=== PATIENT | female | born 1990 | race Caucasian/White ===

== ENCOUNTER 2016-08-12 06:35 | Emergency (ER) | payer BC, OTHER ==
[~2016-08-12] VITALS: Ht 170.2 cm; Wt 76.7 kg
[~2016-08-12 06:35] MED LIST: HYDR-3138 PO; [UNRECOGNIZED DRUG - OTHER] PO
[2016-08-12 06:38] VITALS: BP 123/76
[2016-08-12] MEDS ORDERED: METHOCARBAMOL 750 MG TABLET ONE (07:20)
[2016-08-12] MEDS ORDERED: KETOROLAC 30 MG/1 ML ONE (07:20)
[2016-08-12] MEDS ORDERED: KETOROLAC 30 MG/1 ML IM ONE (07:30)
[2016-08-12] MEDS ORDERED: METHOCARBAMOL 750 MG TABLET PO ONE (07:30)
== END 2016-08-12 09:04 | disposition home or self-care (01) ==
LOC: ED 08:59
DX: S29.019A Strain of muscle and tendon of unspecified wall of thorax, initial encounter (principal); F17.200 Nicotine dependence, unspecified, uncomplicated; S16.1XXA Strain of muscle, fascia and tendon at neck level, initial encounter; V49.9XXA Car occupant (driver) (passenger) injured in unspecified traffic accident, initial encounter; Y93.89 Activity, other specified; Y99.8 Other external cause status; Y92.488 Other paved roadways as the place of occurrence of the external cause
CPT/HCPCS: 72020; 72050; 72072; 96372; 99284; J1885

== ENCOUNTER 2018-08-31 12:14 | Emergency (ER) | payer OTHER ==
[~2018-08-31] VITALS: Ht 170.2 cm; Wt 74.0 kg
[~2018-08-31 12:14] MED LIST changes: -HYDR-3138 PO; +HYDR-3237 PO
[2018-08-31 12:31] VITALS: BP 120/79
[2018-08-31 13:36] LABS: BASOPHILS # (AUTO) 0.02 x10^3/uL (0-0.1); BASOPHILS % (AUTO) 0 % (0-1); EOSINOPHILS # (AUTO) 0.14 x10^3/uL (0-0.4); EOSINOPHILS % (AUTO) 2 % (1-7); LYMPHOCYTES % (AUTO) 25 % (22-44); MD NO; MEAN CORPUSCULAR HEMOGLOBIN 29.5 pg (27.0-34.8); MEAN CORPUSCULAR HGB CONC 32.9 g/dL (32.4-35.8); MEAN CORPUSCULAR VOLUME 89.6 fL (80-100); MEAN PLATELET VOLUME 8.6 fL (7.4-10.4); MONOCYTES # (AUTO) 0.61 x10^3/uL (0.2-0.8); MONOCYTES % (AUTO) 7 % (2-9); NEUTROPHILS # (AUTO) 5.69 x10^3/uL (1.8-6.8); NEUTROPHILS % (AUTO) 66 % (42-75); PLATELET COUNT 223 x10^3/uL (130-400); RED BLOOD COUNT 4.94 x10^6/uL (3.82-5.3); RED CELL DISTRIBUTION WIDTH 13.2 % (9.6-15.2)
--- NOTE | 2018-08-31 13:36 | NUR ---
PATIENT TO US
[2018-08-31 13:45] LABS: ALBUMIN 4.5 g/dL (3.4-5.0); ANION GAP 7 mmol/L (5-15); CALCIUM 9.3 mg/dL (8.5-10.1); CHLORIDE 108 mmol/L (98-107)
--- NOTE | 2018-08-31 14:27 | NUR ---
PATIENT GIVEN MISCARRIAGE PACKET AND RECIEVED CONSENT FOR THE L&D TEAM TO CALL THE PATIENT FOR FOLLOW UP. MEDICAL FOLLOW UP ALSO DISCUSSED WITH PATIENT
== END 2018-08-31 14:35 | disposition home or self-care (01) ==
LOC: ED 14:34
DX: O20.0 Threatened abortion (principal); O99.331 Smoking (tobacco) complicating pregnancy, first trimester; Z3A.01 Less than 8 weeks gestation of pregnancy
CPT/HCPCS: 36415; 76801; 80048; 82040; 84702; 85025; 86901; 99284

== ENCOUNTER 2019-02-12 00:44 | Emergency (ER) | payer OTHER ==
[~2019-02-12] VITALS: Ht 170.2 cm; Wt 76.2 kg
[2019-02-12] MEDS ORDERED: SODIUM CHLORIDE 0.9% 1,000ML IVBOLUS ONE (01:00)
[2019-02-12] MEDS ORDERED: ONDANSETRON 2MG/ML, 2ML IVPush ONE (01:00)
[2019-02-12] MEDS ORDERED: SODIUM CHLORIDE FLUSH 10ML SYR IVF ONE (01:00)
[2019-02-12] MEDS ORDERED: ONDANSETRON 2MG/ML, 2ML ONE (01:05)
[2019-02-12 01:11] LABS: BASOPHILS # (AUTO) 0.03 x10^3/uL (0-0.1); BASOPHILS % (AUTO) 0 % (0-1); EOSINOPHILS # (AUTO) 0.17 x10^3/uL (0-0.4); EOSINOPHILS % (AUTO) 1 % (1-7); LYMPHOCYTES # (AUTO) 2.05 x10^3/uL (1-3.4); LYMPHOCYTES % (AUTO) 18 % (22-44); MD NO; MEAN CORPUSCULAR HEMOGLOBIN 30.2 pg (27.0-34.8); MEAN CORPUSCULAR HGB CONC 33.3 g/dL (32.4-35.8); MEAN CORPUSCULAR VOLUME 90.5 fL (80-100); MEAN PLATELET VOLUME 8.8 fL (7.4-10.4); MONOCYTES # (AUTO) 0.75 x10^3/uL (0.2-0.8); MONOCYTES % (AUTO) 6 % (2-9); NEUTROPHILS # (AUTO) 8.66 x10^3/uL (1.8-6.8); NEUTROPHILS % (AUTO) 74 % (42-75); PLATELET COUNT 243 x10^3/uL (130-400); RED BLOOD COUNT 4.78 x10^6/uL (3.82-5.3)
[2019-02-12 01:22] LABS: ALBUMIN 4.1 g/dL (3.4-5.0); ANION GAP 8 mmol/L (5-15); CALCIUM 9.1 mg/dL (8.5-10.1); CHLORIDE 105 mmol/L (98-107)
[2019-02-12] MEDS ORDERED: METO10TA2 PO (01:22)
[2019-02-12] MEDS ORDERED: PREN-3 PO (01:22)
[2019-02-12 01:36] VITALS: BP 101/49
[2019-02-12 01:36] LABS: MICROSCOPIC INDICATED
--- NOTE | 2019-02-12 01:37 | NUR ---
pt resting calmly, iv fluids infusing, monitors in place, call light within reach. pt denies needs at this time
[2019-02-12 01:43] LABS: CULTURE INDICATED? YES
== END 2019-02-12 02:09 | disposition home or self-care (01) ==
LOC: ED 01:25
DX: O21.1 Hyperemesis gravidarum with metabolic disturbance (principal); R10.84 Generalized abdominal pain; Z3A.08 8 weeks gestation of pregnancy
CPT/HCPCS: 36415; 80048; 81001; 82040; 85025; 87086; 96361; 96374; 99283; J2405; J7030

== ENCOUNTER 2019-09-16 09:27 | Inpatient (IN) | payer MEDICAID ==
[~2019-09-16] VITALS: Ht 170.2 cm; Wt 93.2 kg
[~2019-09-16 09:27] MED LIST changes: +METO10TA2 PO; +PREN-3 PO
[2019-09-17 13:25] VITALS: BP 121/70
[2019-09-17] MEDS ORDERED: OXYTOCIN 30U/ 0.9% NaCL 500ML 500 ML IV ONE (14:01)
[2019-09-17] MEDS ORDERED: LACTATED RINGERS 1,000 ML IV SCH ×2 (14:07→21:30)
[2019-09-17] MEDS ORDERED: MISOPROSTOL 25 MCG TABLET ONE ×2 (14:09→17:46)
[2019-09-17] MEDS: MISOPROSTOL 25 MCG TABLET PO PRN ×2 (14:11→17:55)
[2019-09-17] MEDS ORDERED: ONDANSETRON 2MG/ML, 2ML IVPush PRN ×2 (14:30→21:30)
[2019-09-17] MEDS ORDERED: TERBUTALINE 1 MG/ML, 1ML IVPush PRN (14:30)
[2019-09-17] MEDS ORDERED: FENTANYL PF 100 MCG/2ML IV PRN (14:30)
[2019-09-17] MEDS ORDERED: PENICILLIN GK 5,000,000 UNITS in DEXTROSE 5% 100 ML IVPB ONE (14:30)
[2019-09-17] MEDS ORDERED: CALCIUM CARBONATE 500 MG TAB.CHEW PO PRN (14:30)
[2019-09-17] MEDS ORDERED: FENTANYL PF 100 MCG/2ML IVPush PRN (14:30)
[2019-09-17] MEDS ORDERED: TERBUTALINE 1 MG/ML, 1ML SQ PRN (14:30)
[2019-09-17 14:45] LABS: BASOPHILS # (AUTO) 0.02 x10^3/uL (0-0.1); BASOPHILS % (AUTO) 0 % (0-1); EOSINOPHILS # (AUTO) 0.14 x10^3/uL (0-0.4); EOSINOPHILS % (AUTO) 2 % (1-7); LYMPHOCYTES # (AUTO) 1.74 x10^3/uL (1-3.4); LYMPHOCYTES % (AUTO) 22 % (22-44); MD SCAN; MEAN CORPUSCULAR HEMOGLOBIN 29.2 pg (27.0-34.8); MEAN CORPUSCULAR HGB CONC 32.1 g/dL (32.4-35.8); MEAN CORPUSCULAR VOLUME 90.9 fL (80-100); MEAN PLATELET VOLUME 9.9 fL (7.4-10.4); MONOCYTES # (AUTO) 0.67 x10^3/uL (0.2-0.8); MONOCYTES % (AUTO) 8 % (2-9); NEUTROPHILS # (AUTO) 5.34 x10^3/uL (1.8-6.8); NEUTROPHILS % (AUTO) 68 % (42-75); PLATELET COUNT 150 x10^3/uL (130-400); RED BLOOD COUNT 4.22 x10^6/uL (3.82-5.3); RED CELL DISTRIBUTION WIDTH 14.6 % (9.6-15.2)
[2019-09-17] MEDS ORDERED: D5%-LACTATED RINGERS 1,000 ML IV SCH (15:00)
[2019-09-17] MEDS: PENICILLIN GK 2,500,000 UNITS in DEXTROSE 5% 100 ML IVPB SCH ×2 (17:50→22:00)
[2019-09-17] MEDS ORDERED: FENTANYL PF 100 MCG/2ML ONE (19:13)
[2019-09-17] MEDS ORDERED: OXYTOCIN 30U/ 0.9% NaCL 500ML 500 ML ONE (19:33)
[2019-09-17 19:40] VITALS: BP 129/82
[2019-09-17] MEDS ORDERED: FENTANYL/BUPIV./NS/PF 250 ML EPIDCONT ONE (20:50)
[2019-09-17] MEDS ORDERED: BUPIVACAINE 0.25% ONE (20:55)
[2019-09-17] MEDS ORDERED: FENTANYL/BUPIV./NS/PF 250 ML EPIDCONT SCH (21:30)
[2019-09-17] MEDS ORDERED: NALOXONE 0.4 MG/ML, 1ML IVPush PRN (21:30)
[2019-09-17] MEDS ORDERED: LACTATED RINGERS 1,000 ML IVBOLUS PRN (21:30)
[2019-09-17] MEDS ORDERED: EPHEDRINE 50 MG/ML, 1ML IVPush PRN (21:30)
[2019-09-17] MEDS ORDERED: DIPHENHYDRAMINE 50 MG/ML, 1ML IVPush PRN (21:30)
[2019-09-17] MEDS ORDERED: ONDANSETRON 2MG/ML, 2ML ONE (22:40)
[2019-09-18] MEDS: PENICILLIN GK 2,500,000 UNITS in DEXTROSE 5% 100 ML IVPB SCH ×2 (02:27→06:38)
[2019-09-18] MEDS ORDERED: OXYTOCIN 30U/ 0.9% NaCL 500ML 500 ML IV SCH (07:14)
[2019-09-18] MEDS ORDERED: DOCUSATE 100 MG CAPSULE PO PRN (07:30)
[2019-09-18] MEDS ORDERED: SIMETHICONE 80 MG CHEW TAB PO PRN (07:30)
[2019-09-18] MEDS ORDERED: RHOGAM FROM BLOOD BANK 1 NOTE EA IM/IV ONE (07:30)
[2019-09-18] MEDS ORDERED: MISOPROSTOL 200 MCG TABLET PR PRN (07:30)
[2019-09-18] MEDS ORDERED: ONDANSETRON 2MG/ML, 2ML IV PRN (07:30)
[2019-09-18] MEDS ORDERED: OXYcodone/APAP 5/325MG TABLET PO PRN ×2 (07:30)
[2019-09-18] MEDS ORDERED: MAGNESIUM HYDROXIDE 8%, 30ML UDC PO PRN (07:30)
[2019-09-18] MEDS ORDERED: DIPH,PERTUSS(ACELL),TET VAC/PF NC IM-VACC PRN (07:30)
[2019-09-18] MEDS ORDERED: CALCIUM CARBONATE 500 MG TAB.CHEW PO PRN (07:30)
[2019-09-18] MEDS ORDERED: ACETAMINOPHEN 325 MG TABLET PO PRN ×2 (07:30)
[2019-09-18] MEDS ORDERED: NEWBORN KIT ONE (07:38)
[2019-09-18] MEDS ORDERED: OXYTOCIN 30U/ 0.9% NaCL 500ML 500 ML ONE (07:50)
[2019-09-18] MEDS: PRENATAL VIT/IRON/FA 1 EACH TABLET PO SCH (09:00)
[2019-09-18 11:07] VITALS: BP 106/66
[2019-09-18] MEDS: IBUPROFEN 600 MG TABLET PO PRN ×2 (12:30→18:19)
[2019-09-18 14:33] VITALS: BP 105/63
[2019-09-18 19:22] VITALS: BP 99/62
[2019-09-19 00:15] VITALS: BP 106/68
[2019-09-19] MEDS: IBUPROFEN 600 MG TABLET PO PRN ×2 (02:38→11:43)
[2019-09-19 03:22] LABS: BASOPHILS # (AUTO) 0.04 x10^3/uL (0-0.1); BASOPHILS % (AUTO) 0 % (0-1); EOSINOPHILS # (AUTO) 0.21 x10^3/uL (0-0.4); EOSINOPHILS % (AUTO) 2 % (1-7); LYMPHOCYTES # (AUTO) 2.66 x10^3/uL (1-3.4); LYMPHOCYTES % (AUTO) 22 % (22-44); MD NO; MEAN CORPUSCULAR HEMOGLOBIN 29.6 pg (27.0-34.8); MEAN CORPUSCULAR HGB CONC 32.8 g/dL (32.4-35.8); MEAN CORPUSCULAR VOLUME 90.2 fL (80-100); MEAN PLATELET VOLUME 9.8 fL (7.4-10.4); MONOCYTES % (AUTO) 8 % (2-9); NEUTROPHILS # (AUTO) 8.43 x10^3/uL (1.8-6.8); NEUTROPHILS % (AUTO) 68 % (42-75); PLATELET COUNT 154 x10^3/uL (130-400); RED CELL DISTRIBUTION WIDTH 14.8 % (9.6-15.2)
[2019-09-19 03:30] VITALS: BP 119/83
[2019-09-19 07:50] VITALS: BP 125/76
[2019-09-19] MEDS ORDERED: IBUP-1222 PO (09:49)
[2019-09-19] MEDS: PRENATAL VIT/IRON/FA 1 EACH TABLET PO SCH (10:05)
== END 2019-09-19 16:02 | disposition home or self-care (01) | DRG 806 ==
LOC: LDIP 09-17 13:10 → 2NW 09-18 09:28
PROVIDERS: ADMIT Obstetrics & Gynecology; ATTEND Obstetrics & Gynecology
PROC: 10E0XZZ Delivery of Products of Conception, External Approach (ICD-10-PCS; principal; 2019-09-18)
PROC: 10907ZC Drainage of Amniotic Fluid, Therapeutic from Products of Conception, Via Natural or Artificial Opening (ICD-10-PCS; 2019-09-18)
PROC: 10H07YZ Insertion of Other Device into Products of Conception, Via Natural or Artificial Opening (ICD-10-PCS; 2019-09-18)
PROC: 3E0R3BZ Introduction of Anesthetic Agent into Spinal Canal, Percutaneous Approach (ICD-10-PCS; 2019-09-18)
PROC: 00HU33Z Insertion of Infusion Device into Spinal Canal, Percutaneous Approach (ICD-10-PCS; 2019-09-18)
PROC: 3E0P7VZ Introduction of Hormone into Female Reproductive, Via Natural or Artificial Opening (ICD-10-PCS; 2019-09-18)
DX: O99.824 Streptococcus B carrier state complicating childbirth (principal); O98.52 Other viral diseases complicating childbirth; Z37.0 Single live birth; B00.9 Herpesviral infection, unspecified; Z20.828 Contact with and (suspected) exposure to other viral communicable diseases; Z3A.39 39 weeks gestation of pregnancy
CPT/HCPCS: 36415; 85025; 86592; 86850; 86900; 87635; G0378; J2405; J2540; J3010; J2590; J7120

== ENCOUNTER 2020-06-12 09:02 | Outpatient (CLI) | payer OTHER ==
[~2020-06-12 09:02] MED LIST changes: +IBUP-1222 PO
[2020-06-12] MEDS ORDERED: BIRTH CONTROL (09:27)
[2020-06-12 09:53] LABS: BASOPHILS % (AUTO) 1 % (0-1); EOSINOPHILS % (AUTO) 4 % (1-7); LYMPHOCYTES % (AUTO) 41 % (22-44); MEAN CORPUSCULAR HEMOGLOBIN 28.8 pg (27.0-34.8); MEAN CORPUSCULAR HGB CONC 33.9 g/dL (32.4-35.8); MONOCYTES % (AUTO) 8 % (2-9); NEUTROPHILS % (AUTO) 47 % (42-75); PLATELET COUNT 203 x10^3/uL (130-400); RED CELL DISTRIBUTION WIDTH 13.6 % (9.6-15.2)
[2020-06-12 09:58] LABS: MICROSCOPIC AUTO
[2020-06-12 10:04] LABS: ALANINE AMINOTRANSFERASE 16 U/L (12-78); ALBUMIN 4.3 g/dL (3.4-5.0); ANION GAP 3 mmol/L (5-15); CALCIUM 9.1 mg/dL (8.5-10.1); CHLORIDE 111 mmol/L (98-107); CREATININE 0.72 mg/dL (0.55-1.02)
[2020-06-12 10:08] LABS: ALKALINE PHOSPHATASE 70 U/L (45-117); BILIRUBIN,TOTAL 0.4 mg/dL (0.2-1.0); TOTAL PROTEIN 7.6 g/dL (6.4-8.2)
[2020-06-12 10:25] LABS: MD SCAN
== END 2020-06-12 23:59 | disposition home or self-care (01) ==
LOC: STAR 09:02
PROVIDERS: ATTEND Obstetrics & Gynecology
DX: Z01.812 Encounter for preprocedural laboratory examination (principal); Z20.822 Contact with and (suspected) exposure to COVID-19
CPT/HCPCS: 36415; 80053; 81001; 84702; 85025; U0003

== ENCOUNTER 2020-08-01 15:23 | Outpatient (CLI) | payer OTHER ==
[~2020-08-01 15:23] MED LIST changes: +BIRTH CONTROL
[2020-08-01] MEDS ORDERED: LORA10TA75 PO (15:58)
== END 2020-08-01 23:59 | disposition home or self-care (01) ==
LOC: STAR 15:23
PROVIDERS: ATTEND Obstetrics & Gynecology
DX: Z02.9 Encounter for administrative examinations, unspecified (principal)

== ENCOUNTER 2020-08-04 05:48 | Day surgery (SDC) | payer OTHER ==
[2020-08-01 16:22] LABS: MICROSCOPIC NOT IND
[2020-08-01 16:35] LABS: CALCIUM 9.3 mg/dL (8.5-10.1); CHLORIDE 109 mmol/L (98-107)
[2020-08-01 16:37] LABS: BASOPHILS % (AUTO) 0 % (0-1); EOSINOPHILS % (AUTO) 4 % (1-7); LYMPHOCYTES % (AUTO) 45 % (22-44); MEAN CORPUSCULAR HGB CONC 34.4 g/dL (32.4-35.8); MEAN PLATELET VOLUME 8.9 fL (7.4-10.4); MONOCYTES % (AUTO) 8 % (2-9); NEUTROPHILS % (AUTO) 43 % (42-75); PLATELET COUNT 244 x10^3/uL (130-400); RED BLOOD COUNT 4.91 x10^6/uL (3.82-5.3); RED CELL DISTRIBUTION WIDTH 13.6 % (9.6-15.2)
[2020-08-01 16:40] LABS: MD NO
[2020-08-01 16:44] LABS: ALANINE AMINOTRANSFERASE 24 U/L (12-78); ALBUMIN 4.3 g/dL (3.4-5.0); ALKALINE PHOSPHATASE 51 U/L (45-117); ANION GAP 4 mmol/L (5-15); BILIRUBIN,TOTAL 0.5 mg/dL (0.2-1.0); CREATININE 0.77 mg/dL (0.55-1.02); TOTAL PROTEIN 7.5 g/dL (6.4-8.2)
[~2020-08-04] VITALS: Ht 170.2 cm; Wt 85.2 kg
[~2020-08-04 05:48] MED LIST changes: +LORA10TA75 PO
[2020-08-04] MEDS ORDERED: LACTATED RINGERS 1,000 ML IV SCH ×2 (06:30→07:00)
[2020-08-04] MEDS ORDERED: CEFOTETAN PMX 2GM/50ML 50 ML IVPB ONE (06:30)
[2020-08-04 06:35] VITALS: BP 117/69
[2020-08-04] MEDS ORDERED: MIDAZOLAM 1 MG/ML, 2ML ONE (06:42)
[2020-08-04] MEDS ORDERED: FENTANYL PF 250 MCG/5ML ONE (06:43)
[2020-08-04] MEDS ORDERED: KETOROLAC 30 MG/1 ML ONE (06:45)
[2020-08-04] MEDS ORDERED: DEXAMETHASONE 4 MG/ML, 1ML ONE (06:48)
[2020-08-04] MEDS ORDERED: ROCURONIUM 10MG/ML,5ML ONE (06:48)
[2020-08-04] MEDS ORDERED: NEOSTIGMINE 1 MG/ML, 10ML ONE (06:48)
[2020-08-04] MEDS ORDERED: SILVER NITRATE STICK TP ONE (06:48)
[2020-08-04] MEDS ORDERED: BUPIVACAINE/PF 0.25% ONE (06:48)
[2020-08-04] MEDS ORDERED: PROPOFOL 10 MG/ML, 20ML ONE (06:48)
[2020-08-04] MEDS ORDERED: CEFAZOLIN 1,000 MG ONE (06:48)
[2020-08-04] MEDS ORDERED: GLYCOPYRROLATE 0.2MG/1ML, 5ML ONE (06:48)
[2020-08-04] MEDS ORDERED: SUCCINYLCHOLINE 20 MG/ML, 10ML ONE (06:48)
[2020-08-04] MEDS ORDERED: EPINEPHRINE 1 MG/ML, 1ML ONE (06:48)
[2020-08-04] MEDS ORDERED: ONDANSETRON 2MG/ML, 2ML ONE (06:48)
[2020-08-04] MEDS ORDERED: MEPERIDINE/PF 25MG/0.5ML IVPush PRN (07:00)
[2020-08-04] MEDS ORDERED: FENTANYL PF 100 MCG/2ML IV PRN (07:00)
[2020-08-04] MEDS ORDERED: OXYcodone 5 MG/5 ML ORAL.SOL UDC PO PRN (07:00)
[2020-08-04] MEDS ORDERED: ACETAMINOPHEN 325 MG TABLET PO PRN (07:00)
[2020-08-04] MEDS ORDERED: morphine SULFATE 10 MG/ML, 1ML IVPush PRN (07:00)
[2020-08-04] MEDS ORDERED: LABETALOL 5MG/ML, 20ML IV PRN (07:00)
[2020-08-04] MEDS ORDERED: PROMETHAZINE 25 MG/ML, 1ML IVPush PRN (07:00)
[2020-08-04] MEDS ORDERED: CHLORHEXIDINE 15 ML UDC PO ONE (07:00)
[2020-08-04] MEDS ORDERED: HALOPERIDOL 5 MG/ML IV PRN (07:00)
[2020-08-04] MEDS ORDERED: hydrALAzine 20 MG/ML, 1ML IV PRN (07:00)
[2020-08-04] MEDS ORDERED: LIDOCAINE-MPF 1%, 2ML INFIL ONE (07:00)
[2020-08-04] MEDS ORDERED: HYDROmorphone 1 MG/ML, 1ML INJ IVPush PRN (07:00)
[2020-08-04 07:23] LABS: HCG UR SG 1.015 (1.003-1.030)
[2020-08-04] MEDS ORDERED: SUGAMMADEX 200 MG/2 ML IVPush ONE (08:15)
[2020-08-04] MEDS ORDERED: OXYC-302 PO (08:24)
[2020-08-04] MEDS ORDERED: OXYcodone 5 MG/5 ML ORAL.SOL UDC ONE (10:05)
== END 2020-08-04 11:50 | disposition home or self-care (01) ==
LOC: OUT 05:48
PROVIDERS: ATTEND Obstetrics & Gynecology
DX: Z30.2 Encounter for sterilization (principal); Z20.822 Contact with and (suspected) exposure to COVID-19; Z79.899 Other long term (current) drug therapy; Z98.890 Other specified postprocedural states
CPT/HCPCS: 36415; 58670; 80053; 81003; 81025; 84702; 85025; 86850; 86900; 88302; J0171; J0330; J0690; J1100; J1885; J2250; J2405; J2704; J2710; J3010; J7120; U0003; U0005; 86923